=== PATIENT | male | born 1955 | race Caucasian/White ===

== ENCOUNTER 2020-05-13 13:54 | Day surgery (SDC) | payer OTHER ==
[~2020-05-13 13:54] MED LIST: CLON.3 PO; FLUO10 PO; GABA300 PO; OXYACE7.5T PO
[2020-05-15] MEDS ORDERED: ELIQUIS5 MG PO (18:08)
[2020-05-15] MEDS ORDERED: CYCL10 PO (18:08)
[2020-05-15] MEDS ORDERED: FOLI1 PO (18:09)
[2020-05-15] MEDS ORDERED: OMEP20ER PO (18:09)
[2020-05-15] MEDS ORDERED: TRAM50 PO (18:09)
[2020-05-15] MEDS ORDERED: LACT10SY PO (18:11)
[2020-05-15] MEDS ORDERED: HYDPAM25 PO (18:12)
[2020-05-15] MEDS ORDERED: ACET325 PO (18:13)
== END 2020-05-13 22:38 | disposition home or self-care (01) ==
LOC: US 13:54
DX: R18.8 Other ascites (principal)
CPT/HCPCS: 49083

== ENCOUNTER 2020-05-31 09:31 | Emergency (ER) | payer OTHER ==
[~2020-05-31] VITALS: Ht 172.7 cm; Wt 72.6 kg
[~2020-05-31 09:31] MED LIST changes: +ACET325 PO; +CYCL10 PO; +ELIQUIS5 MG PO; +FOLI1 PO; +HYDPAM25 PO; +LACT10SY PO; +OMEP20ER PO; +TRAM50 PO
== END 2020-05-31 12:27 | disposition home or self-care (01) ==
LOC: ER 09:31
DX: K70.31 Alcoholic cirrhosis of liver with ascites (principal); I10 Essential (primary) hypertension; F32.9 Major depressive disorder, single episode, unspecified; F43.10 Post-traumatic stress disorder, unspecified; Z79.899 Other long term (current) drug therapy; F17.200 Nicotine dependence, unspecified, uncomplicated
CPT/HCPCS: 36415; 49083; 96365-59; 99284-25; P9046

== ENCOUNTER 2020-07-30 09:39 | Day surgery (SDC) | payer OTHER ==
[~2020-07-30] VITALS: Ht 172.7 cm; Wt 75.5 kg
[~2020-07-30 09:39] MED LIST changes: +GABA800 PO; +MULTI-VITAMIN1 EAC2 PO
== END 2020-07-30 12:45 | disposition home or self-care (01) ==
LOC: ORSCSDS 09:39
PROVIDERS: Student in an Organized Health Care Education/Training Program
PROC: 0DJ08ZZ Inspection of Upper Intestinal Tract, Via Natural or Artificial Opening Endoscopic (ICD-10-PCS; principal; 2020-07-30 11:15)
DX: K74.60 Unspecified cirrhosis of liver (principal); K76.6 Portal hypertension; K31.89 Other diseases of stomach and duodenum; R18.8 Other ascites; I10 Essential (primary) hypertension; G47.33 Obstructive sleep apnea (adult) (pediatric); E78.2 Mixed hyperlipidemia; Z86.718 Personal history of other venous thrombosis and embolism; Z79.01 Long term (current) use of anticoagulants; Z79.899 Other long term (current) drug therapy; F17.210 Nicotine dependence, cigarettes, uncomplicated
CPT/HCPCS: J2704; J7120